=== PATIENT | female | born 1985 | race Caucasian/White ===

== ENCOUNTER 2016-11-18 13:51 | Emergency (ER) | payer OTHER | END 2016-11-18 14:55 | disposition home or self-care (01) | LOC: ER1 13:51 | DX: S93.401A Sprain of unspecified ligament of right ankle, initial encounter (principal); Z88.1 Allergy status to other antibiotic agents; W10.9XXA Fall (on) (from) unspecified stairs and steps, initial encounter; X50.1XXA Overexertion from prolonged static or awkward postures, initial encounter; Y92.008 Other place in unspecified non-institutional (private) residence as the place of occurrence of the external cause | CPT/HCPCS: 73590; 73610; 99283 ==

== ENCOUNTER 2020-08-22 16:25 | Emergency (ER) | payer OTHER ==
[~2020-08-22 16:25] MED LIST: COLACE 100MG C100 MG PO
[2020-08-22 16:59] LABS: HEMOGLOBIN 13.5 gm/dl (12.3-15.3); RED BLOOD COUNT 4.7 M/UL (4.00-5.10); WHITE BLOOD COUNT 9.4 K/UL (4.5-11.0)
[2020-08-22 17:20] LABS: BUN/CREATININE RATIO 14 (0-10)
[2020-08-22] MEDS ORDERED: BACTRIM DS TAB1 EACH PO (18:03)
== END 2020-08-22 19:30 | disposition home or self-care (01) ==
LOC: ER1 16:25
PROVIDERS: Preventive Medicine Occupational Medicine
DX: T85.692A Other mechanical complication of permanent sutures, initial encounter (principal); Y83.8 Other surgical procedures as the cause of abnormal reaction of the patient, or of later complication, without mention of misadventure at the time of the procedure; Z88.1 Allergy status to other antibiotic agents
CPT/HCPCS: 73600; 80048; 85025; 85652; 86140; 87040; 96365; 96366; 99283; J3370; J7030